=== PATIENT | female | born 1955 | race Caucasian/White ===

== ENCOUNTER → 2017-05-31 13:30 | Outpatient (CLI) | payer BC, SELFPAY ==
--- NOTE | 2017-05-31 13:45 | US_ITS ---
US extremity LT limited COMPARISON: HISTORY: Palpable fullness left lower back TECHNIQUE: Targeted ultrasound over the area of interest FINDINGS: There is a oval lesion just deep to the subcutaneous tissues left lower back measuring 2.3 x 2.5 cm and this shows homogeneous echogenicity. It is basically isoechoic to the echogenicity of the surrounding musculature. There is no abnormal fluid collection seen. IMPRESSION: Focal oval homogeneous mass likely representing a lipoma. It has no suspicious characteristics.
--- NOTE | 2017-05-31 13:45 | US_ITS ---
US soft tissue head and neck COMPARISON: None HISTORY: Palpable lesion left posterior neck TECHNIQUE: Targeted ultrasound over the area of interest FINDINGS: There is an oval solid mass at the site of the palpable abnormality patient's 3.42 cm in length x 3.1 cm in width. It has somewhat heterogenic echogenicity but basically isoechoic to the surrounding musculature. IMPRESSION: Possible lipoma. However since the echogenicity is somewhat heterogenic more so than most typical lipoma lipoma is present with suggest consideration of a CT scan of the neck for better evaluation.
--- NOTE | 2017-05-31 13:46 | XR_ITS ---
XR chest 2V HISTORY: ITS.REASON: CHEST WALL PAIN ORDERING PHYSICIAN: Parris Craig PATIENT AGE: 61 years COMPARISON: 10/17/2006 FINDINGS: There is mild cardiomegaly without failure. There is increased density in the right lower lobe consistent with atelectasis and/or pneumonia. Right hemidiaphragm is slightly elevated. There is evidence of old granulomatous disease. No acute bony anomalies. IMPRESSION: Right lower lobe infiltrate with mild cardiomegaly
== END ==
PROVIDERS: Family Provider Family Medicine; PCP Family Medicine; Visit Provider Nurse Practitioner Family
DX: R22.1 Localized swelling, mass and lump, neck (principal); R07.89 Other chest pain; M54.5 Low back pain
CPT/HCPCS: 71046; 76536; 76882

== ENCOUNTER → 2017-06-20 12:39 | Outpatient (CLI) | payer BC, SELFPAY ==
--- NOTE | 2017-06-20 12:55 | XR_ITS ---
XR chest 2V HISTORY: Follow-up pneumonia, chest wall pain ITS.REASON: FU ABNORMAL CHEST XRAY ORDERING PHYSICIAN: Jelani Rivas MD PATIENT AGE: 61 years COMPARISON: 05/31/2017 FINDINGS: There is improved inspiration with improvement in right lower lobe pneumonia. Unremarkable cardiovascular structures. Calcified node is present in the left hilum. IMPRESSION: No acute finding, improved right lower lobe pneumonia
[2017-06-20 13:01] LABS: Blood Urea Nitrogen 13 mg/dL (7-18); Creatinine,Serum 0.75 mg/dL (0.55-1.02); Estimated Glomerular Filt Rate 79 ml/min (>60); GFR (African American) 95 ML/MIN (>60)
--- NOTE | 2017-06-20 13:38 | CT_ITS ---
CT soft tissue neck w con CLINICAL INDICATION: Soft tissue mass of the left posterior neck. Abnormal ultrasound joint heterogeneous echogenic lesion ITS.REASON: LIPOMA ORDERING PHYSICIAN: Jelani Rivas MD PATIENT AGE: 61 years COMPARISON: 05/31/2017 TECHNIQUE:Axial, sagittal, and coronal images are generated and reviewed without contrast. A BB is placed along the posterior neck on the left at the region of the palpable abnormality. All CT scans at the facility use one or more dose reduction, viz: automated exposure control; ma/kV adjustment per patient size (including targeted exams where dose is matched to indication; i.e. head); or iterative reconstruction technique. FINDINGS: There is a 4.5 x 2 x 2.7 cm fatty lesion within the posterior aspect of the left neck just deep to the superior aspect of the trapezius. This is consistent with a lipoma. There is only slight increased density within the central aspect of the fat which may be related to some underlying vessels. There is extensive artifact from patient's dental work. No neck adenopathy. There is a 7 mm isodense nodule of the right lobe of the thyroid gland. Atheromatous changes are present involving the carotid arteries. There are slight reversal of the cervical lordosis with degenerative changes in the cervical spine. Postsurgical changes are present involving the right maxillary sinus with opacification of the right maxillary sinus. IMPRESSION: Left posterior neck mass represents a lipoma. Other nonacute findings as described above.
== END ==
PROVIDERS: Family Provider Family Medicine; PCP Family Medicine; Visit Provider Family Medicine
DX: D17.9 Benign lipomatous neoplasm, unspecified (principal); R93.8 Abnormal findings on diagnostic imaging of other specified body structures
CPT/HCPCS: 36415; 70491; 71046; 82565; 84520; Q9967

== ENCOUNTER → 2017-11-02 09:56 | Outpatient (CLI) | payer BC, SELFPAY ==
--- NOTE | 2017-11-02 09:59 | CT_ITS ---
CT abdomen pelvis w con CLINICAL INDICATION: Hematuria, history of kidney stones ITS.REASON: gross hematuria ORDERING PHYSICIAN: Curt Brewster MD PATIENT AGE: 61 years COMPARISON: 03/02/2016 TECHNIQUE: Axial images obtained with sagittal and coronal reformats. All CT scans at the facility use one or more dose reduction, viz: automated exposure control, ma/kV adjustment per patient size (including targeted exams where dose is matched to indication, i.e. head), or iterative reconstruction technique. Pre and post enhanced images are obtained PROCEDURE: Oral Contrast: None IV Contrast: 75 mL's of Isovue-370. FINDINGS: Previously described left lower lobe nodule measuring approximate 5 mm once again noted and unchanged. The liver, spleen, adrenal glands, and pancreas have an unremarkable appearance Cholelithiasis noted.. No ductal dilatation. There is a 5 mm stone in the lower pole the right kidney. No other renal calculi are evident. No hydronephrosis. No ureteral calculi. No renal mass. There are postsurgical changes of the intra-abdominal wall with surgical mesh in place. There is a small area of discontinuity of the mesh at the level of the umbilicus. No recurrent hernia evident. Postsurgical changes of the right colon. No evidence of diverticulitis. No intestinal obstruction or free air. There is diverticulosis of the descending and sigmoid colon. There has been prior hysterectomy. No pelvic mass abnormal fluid collection or focal inflammatory change evident of the pelvis. Unremarkable urinary bladder. There is mild lumbar scoliosis convex right with degenerative disc disease at L1-L2 and L2-L3 and in the lower thoracic spine. IMPRESSION: 1. Right nephrolithiasis. 2. No ureteral calculi. No renal mass or hydronephrosis. 3. Sigmoid diverticulosis
[2017-11-02 10:34] LABS: Anion Gap 11.9 mEq/L (5-15); Blood Urea Nitrogen 12 mg/dL (7-18); Calcium 9.3 mg/dL (8.5-10.1); Carbon Dioxide 29 mmol/L (21.0-32.0); Chloride 107 mmol/L (98-107); Creatinine,Serum 0.76 mg/dL (0.55-1.02); Estimated Glomerular Filt Rate 77 ml/min (>60); GFR (African American) 94 ML/MIN (>60); Glucose 126 mg/dL (74-106); Potassium 3.9 mmoL/L (3.5-5.1); Sodium 144 mmol/L (136-145)
--- NOTE | 2017-11-02 11:04 | HMH.ITSHM ---
FENOFIBRATE 145 MG METFORMIN 850 MG X2 LOSARTAN 100 MG ROSUVASTATIN 40 MG ASPIRIN 81 MG STERALINE
== END ==
PROVIDERS: Family Provider Family Medicine; PCP Family Medicine; Visit Provider Urology
DX: R31.0 Gross hematuria (principal); Z80.51 Family history of malignant neoplasm of kidney; N20.9 Urinary calculus, unspecified
CPT/HCPCS: 36415; 74177; 80048; Q9967

== ENCOUNTER → 2018-01-04 09:25 | Outpatient (CLI) | payer BC, SELFPAY ==
--- NOTE | 2018-01-04 09:28 | MM_ITS ---
MM Dig screening mamm BI w/CAD ORDERING PHYSICIAN : Jelani Rivas MD PATIENT AGE: 62 years GENDER: Female COMPARISON: December 14, 2016, 07/16/2015. INDICATION: ITS.REASON: SCREENING 62-year-old. No hormones. No new complaints. Family history. Maternal aunt with breast cancer in her 60s postmenopausal. TECHNIQUE: Standard CC and MLO images were obtained. R2 CAD reviewed. Additional medial cc view/cleavage view also performed FINDINGS: Lower density breast bilaterally with generalized fatty replacement. No dominant mass nor suspicious calcifications in either breast. No architectural distortion. No significant change since prior studies. Bilateral follow-up in one year the adequate. IMPRESSION Stable bilateral mammogram. No new areas of concern. Bilateral follow-up one year recommended.. BI-RADS Category: 1 Negative RECOMMENDED FOLLOW-UP: 1YR 1 YEAR FOLLOW-UP (A letter has been sent to the patient regarding results of the study.)
== END ==
PROVIDERS: PCP Family Medicine; Visit Provider Family Medicine
DX: Z12.31 Encounter for screening mammogram for malignant neoplasm of breast (principal)
CPT/HCPCS: 77067

== ENCOUNTER → 2018-06-12 11:16 | Outpatient (CLI) | payer BC, SELFPAY ==
--- NOTE | 2018-06-12 11:23 | XR_ITS ---
EXAM: XR cervical spine 5V HISTORY: ITS.REASON: NECK PAIN ORDERING PHYSICIAN: Parris Craig PATIENT AGE: 62 years COMPARISON: None FINDINGS: There is slight reversal of cervical lordosis. There is minimal anterolisthesis of C4 on C5 of 3 mm. Multilevel degenerative disc disease is present from C2 to C7 more extensive at C6-C7. There is mild uncovertebral hypertrophy with foraminal narrowing on the right at C3-C4 and C6-C7 and on the left at C6-C7. Facet arthritic changes are noted at C4-C7. No fracture or dislocation. No lytic or blastic change. IMPRESSION: Cervical spondylosis with degenerative disc disease and facet arthritic change with foraminal narrowing as described above and reversal of the cervical lordosis
--- NOTE | 2018-06-12 11:23 | XR_ITS ---
EXAM: XR thoracic spine 3V HISTORY: ITS.REASON: BACK PAIN Comparison: None FINDINGS: There is degenerative disc disease in the midthoracic spine. No acute fracture or dislocation. Degenerative disc disease is also present at L1-L2. No lytic or blastic change. IMPRESSION: Thoracic spondylosis with degenerative disc disease, no acute finding
== END ==
PROVIDERS: PCP Family Medicine; Visit Provider Nurse Practitioner Family
DX: M54.2 Cervicalgia (principal); M54.6 Pain in thoracic spine
CPT/HCPCS: 72050; 72072

== ENCOUNTER → 2019-01-24 10:31 | Outpatient (CLI) | payer OTHER, SELFPAY ==
--- NOTE | 2019-01-24 10:43 | MM_ITS ---
PROCEDURE: MM DIG SCREENING MAMM BI W/CAD CLINICAL INDICATION: SCREENING There is a history of breast cancer in the patient's maternal aunts both diagnosed after menopause COMPARISON: [facility] DIG MAMM-SCREEN HARDY from 07/16/2015 [facility] DIG MAMM-SCREEN [facility] W/CAD from 12/14/2016 [facility] MM Dig screening mamm BI w/CAD from 01/04/2018 TECHNIQUE: Standard CC and MLO images were obtained. R2 CAD reviewed. FINDINGS: Scattered fibroglandular densities are seen throughout both breasts and the findings of bilateral and symmetrical. There is a mole marker on each breast. A couple benign-appearing microcalcifications right breast. There are several normal appearing nodes in both axilla. IMPRESSION: Fibrofatty parenchyma with no suspicious lesions seen BI-RAD Category: 2 Benign Finding(s) FOLLOW-UP: 1YR 1 Year Follow-up (A letter has been sent to the patient regarding results of the study.) Dictated by: Dr. Brody Grant MD 01/24/2019 11:[address] Brody Grant MD in [place] 01/24/2019 11:26
== END ==
PROVIDERS: PCP Family Medicine; Visit Provider Family Medicine
DX: Z12.31 Encounter for screening mammogram for malignant neoplasm of breast (principal)
CPT/HCPCS: 77067

== ENCOUNTER → 2019-10-14 08:53 | Outpatient (CLI) | payer OTHER, SELFPAY ==
--- NOTE | 2019-10-14 08:59 | US_ITS ---
PROCEDURE: US ABDOMEN LIMITED CLINICAL INDICATION: ABD PAIN, ACUTE, RUQ COMPARISON: No exams were available for comparison FINDINGS: PANCREAS: Unremarkable. No obvious mass or abnormal fluid collection. No ductal dilatation LIVER: No focal liver lesions demonstrated. Homogeneous echogenicity. No intrahepatic biliary ductal dilatation evident. There is appropriate direction of blood flow within a non dilated portal vein RIGHT KIDNEY: Unremarkable. Right kidney measures 11.6 x 5.9 by 5.6 cm and appears sonographically normal. . No hydronephrosis GALLBLADDER: The gallbladder is normal in size. There is a partially calcified gallstone in addition to a least 2-3 small nonshadowing gallbladder polyps. The gallbladder wall is normal in thickness. The common bile duct measures 3 mm. IMPRESSION: Cholelithiasis along with gallbladder polyps as noted Dictated by: Dr. Brody Grant MD 10/14/2019 10:24 Dr. Brody Grant MD in [place] 10/14/2019 10:24
[2019-10-14 09:42] LABS: Basophils % 0.4 % (0.1-2.0); Eosinophils # 0.1 K/mm3 (0.0-0.4); Eosinophils % 1.7 % (0.1-12.0); Hemoglobin 13.8 g/dL (12.2-16.2); Lymphocytes % 18.4 % (10-50); Mean Corpuscular HGB Conc 33.7 g/dL (31.8-35.4); Mean Corpuscular Volume 89.2 fl (81-99); Mean Platelet Volume 7.7 fl (7.4-10.4); Monocytes # 0.3 K/mm3 (0.1-1.0); Monocytes % 6.1 % (1.7-9.3); Neutrophils # 4.1 K/mm3 (1.8-7.8); Neutrophils % 73.5 % (37.0-80.0); Platelet Count 274 K/mm3 (142-424); Red Cell Distribution Width 13.3 % (11.5-17.5); White Blood Count 5.6 K/mm3 (4.8-10.8)
[2019-10-14 10:03] LABS: Chloride 103 mmol/L (98-107); Potassium 3.6 mmoL/L (3.5-5.1); Sodium 141 mmol/L (136-145)
[2019-10-14 10:06] LABS: Alanine Aminotransferase 64 U/L (12-78); Albumin Level 4.3 g/dl (3.5-5.0); Albumin/Globulin Ratio 1.3 (1.1-1.8); Alkaline Phosphatase 158 U/L (38-126); Amylase 42 U/L (30-110); Anion Gap 12.6 mEq/L (5-15); Aspartate Amino Transferase 73 U/L (14-36); Bilirubin,Total 0.7 mg/dl (0.2-1.3); Blood Urea Nitrogen 17 mg/dl (7-17); Calcium 9.9 mg/dl (8.4-10.2); Carbon Dioxide 29 mmol/L (22.0-30.0); Estimated Glomerular Filt Rate 63 ml/min (>60); GFR (African American) 77 ML/MIN (>60); Globulin 3.2 g/dL (1.3-3.2); Glucose 161 mg/dl (74-100); Lipase 64 U/L (23-300); Total Protein,Serum 7.5 g/dl (6.3-8.2)
== END ==
PROVIDERS: PCP Family Medicine; Visit Provider Nurse Practitioner Family
DX: R10.10 Upper abdominal pain, unspecified (principal)
CPT/HCPCS: 36415; 76705; 80053; 82150; 83690; 85025

== ENCOUNTER → 2019-11-03 10:06 | Outpatient (CLI) | payer OTHER, SELFPAY ==
[2019-11-03 10:24] LABS: Basophils # 0.1 K/mm3 (0-0.2); Eosinophils # 0.2 K/mm3 (0.0-0.4); Eosinophils % 3.4 % (0.1-12.0); Hematocrit 36.7 % (37.0-47.0); Hemoglobin 12.7 g/dL (12.2-16.2); Lymphocytes # 2.1 K/mm3 (0.7-4.5); Lymphocytes % 44.9 % (10-50); Mean Corpuscular HGB Conc 34.7 g/dL (31.8-35.4); Mean Corpuscular Hemoglobin 29.7 pg (27.0-31.2); Mean Corpuscular Volume 85.4 fl (81-99); Mean Platelet Volume 7.3 fl (7.4-10.4); Monocytes # 0.2 K/mm3 (0.1-1.0); Monocytes % 5.2 % (1.7-9.3); Neutrophils # 2.1 K/mm3 (1.8-7.8); Neutrophils % 45.6 % (37.0-80.0); Platelet Count 330 K/mm3 (142-424); Red Blood Count 4.29 M/mm3 (4.20-5.40); Red Cell Distribution Width 13.5 % (11.5-17.5); White Blood Count 4.6 K/mm3 (4.8-10.8)
[2019-11-03 10:55] LABS: Chloride 104 mmol/L (98-107); Potassium 3.9 mmoL/L (3.5-5.1); Sodium 140 mmol/L (136-145)
[2019-11-03 10:57] LABS: Amylase 53 U/L (30-110); Blood Urea Nitrogen 20 mg/dl (7-17); Estimated Glomerular Filt Rate 85 ml/min (>60); GFR (African American) 102 ML/MIN (>60)
[2019-11-03 10:58] LABS: Alanine Aminotransferase 27 U/L (12-78); Albumin Level 4.2 g/dl (3.5-5.0); Albumin/Globulin Ratio 1.5 (1.1-1.8); Alkaline Phosphatase 63 U/L (38-126); Anion Gap 10.9 mEq/L (5-15); Aspartate Amino Transferase 27 U/L (14-36); Bilirubin,Total 0.5 mg/dl (0.2-1.3); Calcium 10.2 mg/dl (8.4-10.2); Carbon Dioxide 29 mmol/L (22.0-30.0); Globulin 2.8 g/dL (1.3-3.2); Glucose 298 mg/dl (74-100); Lipase 260 U/L (23-300)
[2019-11-03 12:13] LABS: Coronavirus 19 IgG Antibody Negative (Negative); Coronavirus 19 IgM Antibody Negative (Negative)
== END ==
PROVIDERS: PCP Family Medicine; Visit Provider Surgery
DX: Z01.818 Encounter for other preprocedural examination (principal); K80.20 Calculus of gallbladder without cholecystitis without obstruction
CPT/HCPCS: 36415; 80053; 82150; 83690; 85025; 86328

== ENCOUNTER 2019-11-05 07:02 | Day surgery (SDC) | payer OTHER, SELFPAY ==
[2019-10-30 10:40] VITALS: BMI 31.4
[2019-11-05] VITALS (12 sets, daily range): BP systolic 112–187; BP diastolic 54–78; PULSE 65–74; RESP 16–18; TEMP 36.4–43; O2SAT 93–99
[2019-11-05 07:28] LABS: POC Glucose,Bedside 177 (70-110)
--- NOTE | 2019-11-05 07:33 | P.PN_ITS ---
[facility] Anesthesia Checklist - Patient Identification Patient Identification: Arm Band, Verbal (Name & ) - Structural Data Admitted From: Home Planned Operative Procedure/s: lap choly Consent for Planned Operative Procedure(s) Verified: Yes Verified Documents: History and Physical - NPO Status Verified Time NPO: 00:00 - Chart Verification Results Verified: CBC, BMP - Additional verifications Patient : No Anesthesia Reactions: No Hx Blood Transfusions: No Blood Transfusion Reaction: No Cephalosporin Allergy: No Previous Colonoscopy: Yes - Cardiovascular Assessment Heart Sounds: S1 & S2 Pulse Strength: Baseline Pulse Rhythm: Regular Peripheral Edema: No - Airway Assessment C-Spine Mobility Assessed: Yes TMJ Mobility Assessed: Yes Dentition: Good Dentition - Neurological Assessment Level of Consciousness: Awake, Alert, Appropriate Hx Seizures: No Numbness or tingling in extremities: No - Anesthesia Plan Anesthesia Risk discussed: Yes Anesthesia Plan: Verified ASA Class: III Anesthesia Type: General [facility] History I have reviewed the patient's past medical history: Yes Medical History: Reports:: Anxiety, Diabetes Mellitus Type 2, Hyperlipidemia, Hypertension Denies:: Cancer, Diabetes Mellitus Type 1, Internal Pacemaker, MRSA, Seizures *Have you ever received a pneumonia vaccine?: Yes *Have you received a flu vaccine this season?: Yes Other Medical History: Reports: Other. Denies: Blood Transfusion Reaction Anesthesia experience/problems:: none Laterality Cases: Right: Arthroscopy Knee, Bilateral: Tonsillectomy Other Surgeries: Yes: Colon Resection, Hernia Repair, Hysterectomy-Total, Tubal Ligation, Other. No: Pacemaker Amputation: No Fractures: No - *Social History Last grade of school completed: Some college Smoking Status: Never smoker Alcohol Intake: current Alcohol Intake Frequency:: a few times a week Substance Use Type: denies use *Occupational Status:: retired Housing: house Household Members: spouse *Travel in the last 8 weeks: None - Psychiatric History Pschychiatric History:: Reports:: Anxiety Family Hx:: Cancer, Coronary Artery Disease, Diabetes, Heart Attack, Hyperlipidemia, Hypertension
--- NOTE | 2019-11-05 10:40 | HMH.OPNOTE ---
Date of procedure: 11/05/19 Pre-op Diagnosis:: Symptomatic gallstones Post-op Diagnosis:: Same Procedure performed:: Laparoscopic cholecystectomy Surgeon:: Andrey Tavarez MD LONG DISTANCE OPERATOR:: Castro Drummond Anesthesia: GETFelicia Estimated blood loss (mL): 20 Clinical Note:: Patient is a 63-year-old female referred by [facility] for gallbladder. She states that she has had some symptoms characterized mainly as bloating, pain in the right upper quadrant, nausea and occasional vomiting for about a year. However, this is become progressively worse. She has associated this with alcohol intake and states that whenever she drinks even if it is only a single beer she has symptoms. This usually occurs a couple hours after intake. She has had some occasional waves of nausea. A bit over a week ago she had significant attack . She then underwent ultrasound which reveals calcified gallstones with several gallbladder polyps . Of note, the patient has undergone laparotomy with colon resection for large benign polyp years ago and has had several laparoscopic hernia repairs subsequently at [facility], [place]. Operative findings:: She had a distended somewhat thickened gallbladder. There were extensive intra-abdominal adhesions with a large prosthetic mesh covering the majority of her upper abdomen. She did have some enteric adhesions in the right upper quadrant. Operative note:: Patient was taken to the operating room. She was given preoperative intravenous antibiotics. In the operating room she was placed in a supine position. General anesthesia was induced via endotracheal tube. Abdomen was prepped and draped in the standard surgical fashion. Due to her prior surgical history through a 5 mm left subcostal incision optical trocar was inserted with 5 mm laparoscope. CO2 pneumoperitoneum was achieved to 15 mmHg. Laparoscopic surveillance was then carried out and there were omental adhesions encountered. There was a clean window free of adhesions in the left lateral abdomen and an additional 5 mm trocar was inserted at this location. Extensive adhesion lysis was performed using laparoscopic Metzenbaum dissection along with some blunt dissection and use of ANNALISA ultrasonic harmonic vee. Omental adhesions were taken down from the anterior abdominal wall where there was a large prosthetic mesh. There were noted to be some enteric adhesions likely her prior bowel anastomosis in the right upper quadrant. This was carefully taken down using sharp laparoscopic Metzenbaum dissection. Please note that laparoscopic adhesion lysis was approximately 1 hour. Patient was then positioned in reverse Trendelenburg left side down. A couple of 5 mm trochars were inserted in the right upper abdomen. 10 mm trocar was inserted in the epigastrium. Mesh appeared to be extending down to her umbilical area. Inferior to this in the lower abdomen and pelvis there were still extensive omental adhesions. Therefore through her umbilical area incision was made and 11 mm trocar was inserted. Gallbladder was identified and grasped retracted anteriorly over the dome of the liver. Adhesions to the gallbladder were taken down using blunt dissection. Dissection was carried down to the neck of the gallbladder. Infundibulum/Colin's pouch was retracted anterior laterally. Visceral peritoneum over the neck of the gallbladder was bluntly incised. There was some fatty infiltration around the neck of the gallbladder and shreya hepatis. Ultimately dissection was performed isolating the cystic duct. There was some unavoidable spillage of bile from the gallbladder body during the dissection process and this was suctioned free. Cystic duct, once isolated, was multiply clipped and sharply divided. Cystic artery was carefully coagulated with ANNALISA ultrasonic robotic vee and divided. The gallbladder was dissected free from the liver in a retrograde fashion using ANNALISA ultrasonic harmonic shear
--- NOTE | 2019-11-05 10:46 | P.PN_ITS ---
[facility] Anesthesia Record Part I Intake, IV Amount: 1,500 Estimated blood loss (mL): 10 Urine output (mL): 0 Blood Pressure: 124/67 SaO2: 93 Pulse Rate: 71 Respiratory Rate: 16 Temperature: 99.2 F Patient is:: Drowsy, Stable Stable to PACU at:: 10:40
[2019-11-05 10:56] LABS: POC Glucose,Bedside 218 (70-110)
--- NOTE | 2019-11-05 11:33 | PC.NURSE ---
see emar for digital media buyer
--- NOTE | 2019-11-05 12:21 | HMH.ANESII ---
[facility] Anesthesia Record Part II Discharge Time: 11:10 Destination: Surgical Day Care (OP Surgery) PACU nurse assessment reviewed?: Yes Patient Condition:: Good Anesthesia Complications:: None Swallowing reflex intact?: Yes Cyanosis?: No Blood Pressure: 121/69 Pulse Rate: 67 Temperature: 99.2 F Mental Status: Alert & Oriented Pain level:: 0 Nausea and/or vomitting:: Nauseated Intake, IV Amount: 0
== END 2019-11-05 12:12 | disposition home or self-care (01) ==
LOC: OR 07:03
PROVIDERS: PCP Family Medicine; Visit Provider Surgery
PROC: 0FT44ZZ Resection of Gallbladder, Percutaneous Endoscopic Approach (ICD-10-PCS; CPT 47562; principal; 2019-11-05 08:45)
DX: K80.20 Calculus of gallbladder without cholecystitis without obstruction (principal); K66.0 Peritoneal adhesions (postprocedural) (postinfection); Z90.49 Acquired absence of other specified parts of digestive tract; E11.9 Type 2 diabetes mellitus without complications; I10 Essential (primary) hypertension; E78.5 Hyperlipidemia, unspecified; F41.9 Anxiety disorder, unspecified; Z90.89 Acquired absence of other organs; Z87.39 Personal history of other diseases of the musculoskeletal system and connective tissue; Z90.710 Acquired absence of both cervix and uterus; Z72.89 Other problems related to lifestyle; Z80.9 Family history of malignant neoplasm, unspecified
CPT/HCPCS: 47562; 82962; 96374; J2405; J2710

== ENCOUNTER → 2020-01-10 07:48 | Outpatient (CLI) | payer OTHER, SELFPAY ==
[2020-01-10 10:33] LABS: Coronavirus 19 IgG Antibody Negative (Negative); Coronavirus 19 IgM Antibody Negative (Negative)
== END ==
PROVIDERS: Visit Provider Internal Medicine Gastroenterology
DX: Z01.818 Encounter for other preprocedural examination (principal); Z12.11 Encounter for screening for malignant neoplasm of colon
CPT/HCPCS: 36415; 86328

== ENCOUNTER 2020-01-12 07:02 | Day surgery (SDC) | payer OTHER, SELFPAY ==
[2020-01-06 13:52] VITALS: BMI 30.7
[2020-01-12 07:13] VITALS: BP 175/89; PULSE 66; RESP 18; TEMP 36.7; O2SAT 96
[2020-01-12 07:28] LABS: POC Glucose,Bedside 173 (70-110)
--- NOTE | 2020-01-12 08:00 | HMH.ANESCL ---
[facility] Anesthesia Checklist - Patient Identification Patient Identification: Arm Band, Verbal (Name & ) - Structural Data Admitted From: Home Planned Operative Procedure/s: Colonoscopy Consent for Planned Operative Procedure(s) Verified: Yes Verified Documents: Surgical Consent, History and Physical - NPO Status Verified Time NPO: 00:00 - Chart Verification Results Verified: None - Additional verifications Fingerstick Blood Glucose: 173 Anesthesia Reactions: No Hx Blood Transfusions: No Blood Transfusion Reaction: No - Airway Assessment C-Spine Mobility Assessed: Yes TMJ Mobility Assessed: Yes Dentition: Good Dentition - Neurological Assessment Level of Consciousness: Awake, Alert, Appropriate, Follows Commands Hx Seizures: No Numbness or tingling in extremities: Yes - Anesthesia Plan Anesthesia Risk discussed: Yes Anesthesia Plan: Verified ASA Class: III Anesthesia Type: MAC [facility] History I have reviewed the patient's past medical history: Yes Medical History: Reports:: Anxiety, Diabetes Mellitus Type 2, Hyperlipidemia, Hypertension Denies:: Cancer, Diabetes Mellitus Type 1, Internal Pacemaker, MRSA, Seizures *Have you ever received a pneumonia vaccine?: Yes *Have you received a flu vaccine this season?: Yes Other Medical History: Reports: Other. Denies: Blood Transfusion Reaction Anesthesia experience/problems:: None Laterality Cases: Right: Arthroscopy Knee, Bilateral: Lumpectomy, Tonsillectomy Other Surgeries: Yes: Colonoscopy, Colon Resection, Hernia Repair, Hysterectomy-Total, Tubal Ligation, Other. No: Pacemaker Amputation: No Fractures: No - *Social History Smoking Status: Never smoker Alcohol Intake: current Alcohol Intake Frequency:: a few times a week Substance Use Type: denies use *Occupational Status:: retired Housing: house Household Members: spouse *Travel in the last 8 weeks: None - Psychiatric History Pschychiatric History:: Reports:: Anxiety Family Hx:: Cancer, Coronary Artery Disease, Diabetes, Heart Attack, Hyperlipidemia, Hypertension
--- NOTE | 2020-01-12 08:02 | P.PCN_ITS ---
[facility] Procedure Note Procedure Note:: Colonoscopy Procedure Report: Colonoscopy with cold snare polypectomy Endoscopist: Pierre Cowart II, MD Referring physician: UNA Porter Date of Procedure: January 12, 2020 Equipment: Olympus 180 variable stiffness pediatric colonoscope Sedation: MAC sedation Indication: Mrs. Vilchis is a 64-year-old female who is here for follow- up screening/surveillance colonoscopy secondary to a personal history of colon polyps. She does have a history of advanced adenomatous polyps and did have colon resection 10 years ago because of the large advanced sessile adenomatous polyp (Dr. Newton Burdick). Her last colonoscopy was 3 to 4 years ago (Dr. Terry Lora). She reports no abdominal pain, weight loss, change in her bowel habits or rectal bleeding. She reports no family history of colon cancer. Procedure: Prior to the procedure, a history and physical exam was performed, and patient's medications and allergies were reviewed. The risks, benefits and alternatives of the sedation and procedure were discussed with the patient. All questions were answered and informed consent was obtained. The patient was brought to the procedure room. Patient identification and proposed procedure were verified by the physician and the nurse. The patient was placed in a left lateral decubitus position and the scope was passed under direct vision. Throughout the procedure, the patient's blood pressure, pulse, and oxygen saturations were monitored continuously. The colonoscopy was accomplished without difficulty. The patient tolerated the procedure well. Findings: On digital rectal examination there was normal rectal tone. There were no external hemorrhoids. The colonoscope was introduced through the anal canal to the rectum and advanced to the ileocolonic anastomosis. The scope was advanced a short distance into the ileum which was normal. The scope was then withdrawn into the colon. There was evidence of prior right hemicolectomy. There were 2 polyps (transverse x1 (4 mm) and sigmoid x1 (3 mm)) that were both removed via cold snare polypectomy. There were scattered diverticuli throughout the descending and sigmoid colon (LEFT colon). The rectum itself was normal. Upon retroflexion within the rectum there were grade 1-2 internal hemorrhoids. The preparation was excellent throughout with [place] Preparation Score of 9. The cecal time was 10 minutes. Impression: 1. Diminutive colonic polyps x2 2. Left-sided diverticulosis 3. Prior right hemicolectomy with normal ileocolonic anastomosis 4. Grade 1-2 internal hemorrhoids Plan: I will follow up the polyp pathology and recommend repeat colonoscopy again in 5 years based upon the polyp histology and the patient's prior history of advanced adenomatous polyps. I would encourage fiber supplementation on a long-term daily maintenance basis.
[2020-01-12 08:06] VITALS: O2SAT 97
[2020-01-12 08:23] VITALS: BP 124/70; PULSE 82; RESP 12; TEMP 36.6; O2SAT 92
[2020-01-12 08:33] VITALS: BP 120/76; PULSE 63; RESP 16; O2SAT 97
[2020-01-12 08:43] VITALS: BP 153/82; PULSE 61; RESP 16; O2SAT 100
[2020-01-12 08:53] VITALS: BP 150/80; PULSE 56; RESP 16; TEMP 36.6; O2SAT 100
== END 2020-01-12 08:56 | disposition home or self-care (01) ==
LOC: OUTP 07:03
PROVIDERS: PCP Family Medicine; Visit Provider Internal Medicine Gastroenterology
PROC: 0DJD8ZZ Inspection of Lower Intestinal Tract, Via Natural or Artificial Opening Endoscopic (ICD-10-PCS; CPT 45378; principal; 2020-01-12 08:00)
DX: Z12.11 Encounter for screening for malignant neoplasm of colon (principal); Z86.010 Personal history of colon polyps; K63.5 Polyp of colon; K57.30 Diverticulosis of large intestine without perforation or abscess without bleeding; K64.0 First degree hemorrhoids; Z90.49 Acquired absence of other specified parts of digestive tract; Z87.19 Personal history of other diseases of the digestive system
CPT/HCPCS: 45385; 82962

== ENCOUNTER → 2020-02-19 08:48 | Outpatient (CLI) | payer OTHER, SELFPAY ==
--- NOTE | 2020-02-19 08:50 | MM_ITS ---
PROCEDURE: MM DIG SCREENING MAMM BI W/CAD Digital Breast Tomosynthesis Included CLINICAL INDICATION: SCREENING There is a history of breast cancer patient's maternal aunt. COMPARISON: [facility] DIG MAMM-SCREEN HARDY W/CAD from 12/14/2016 [facility] MM Dig screening mamm BI w/CAD from 01/04/2018 MG MM DIG SCREENING MAMM BI W/CAD from 01/24/2019 TECHNIQUE: Standard CC and MLO images and 3D Tomosynthesis was obtained. R2 CAD reviewed. FINDINGS: Scattered mild diffuse fibroglandular densities are seen throughout breasts. There are mole markers on each breast. There are no CAD markings. There are few scattered benign-appearing microcalcifications right breast. There are multiple small nodes in both axilla. There is no suspicious lesion and no suspicious microcalcifications. IMPRESSION: Fibrofatty parenchyma with no suspicious lesions seen BI-RAD Category: 2 Benign Finding(s) FOLLOW-UP: 1YR 1 Year Follow-up (A letter has been sent to the patient regarding results of the study.) Dictated by: Dr. Brody Grant MD 02/23/2020 08:26 Dr. Brody Grant MD in [place] 02/23/2020 08:26
== END ==
PROVIDERS: PCP Family Medicine; Visit Provider Nurse Practitioner Family
DX: Z12.31 Encounter for screening mammogram for malignant neoplasm of breast (principal)
CPT/HCPCS: 77063; 77067

== ENCOUNTER → 2020-03-19 09:35 | Outpatient (CLI) | payer OTHER, SELFPAY ==
--- NOTE | 2020-03-19 09:38 | XR_ITS ---
PROCEDURE: XR DEXA AXIAL SKELETON CLINICAL HISTORY: OSTEOPOROSIS COMPARISON: No exams were available for comparison FINDINGS: The right hip BMD is 0.759 with a T-score of -0.8. The left hip BMD is 0.728 with a T-score of -1.1. The lumbar spine BMD is 1.203 with a T-score of 1.4. IMPRESSION: This patient is considered osteopenic according to the World Health Organization criteria. Bone density is between 10 and 25 percent below young normal. Fracture risk is moderate. Treatment is advised. Based on these results a follow-up exam is recommended in 2 year. Dictated by: Axel Turk MD 03/19/2020 19:34 Axel Turk MD in [place] 03/22/2020 15:52
== END ==
PROVIDERS: PCP Family Medicine; Visit Provider Nurse Practitioner Family
DX: Z13.820 Encounter for screening for osteoporosis (principal); Z78.0 Asymptomatic menopausal state
CPT/HCPCS: 77080

== ENCOUNTER → 2020-05-26 13:43 | Outpatient (POV) | payer OTHER, SELFPAY | DX: Z00.00 Encounter for general adult medical examination without abnormal findings (principal) ==

== ENCOUNTER → 2021-03-25 07:51 | Outpatient (CLI) | payer MEDICARE, SELFPAY ==
--- NOTE | 2021-03-25 08:14 | MM_ITS ---
PROCEDURE INFORMATION: Exam: MG Bilateral Screening 3D Mammography Exam date and time: 03/25/2021 8:14 AM Age: 65 years old Clinical indication: Encounter for screening mammogram for malignant neoplasm of breast TECHNIQUE: Imaging protocol: Bilateral Screening tomosynthesis and 2D mammography including computer-aided detection (CAD) when performed. COMPARISON: 1. MG MM DIG SCREENING MAMM BI W/CAD 02/19/2020 9:04 AM 2. MG MM DIG SCREENING MAMM BI W/CAD 01/24/2019 11:04 AM FINDINGS: MAMMOGRAPHY: Breast composition: The breasts are almost entirely fatty. Mass: None. Architectural distortion: None. Calcifications: No suspicious calcifications. Asymmetric density: None. Skin thickening: None. Axillary adenopathy: None. IMPRESSION: No mammographic evidence of malignancy. Annual screening is recommended unless otherwise clinically indicated. ASSESSMENT: BI-RADS Category 1: Negative
== END ==
PROVIDERS: PCP Family Medicine; Visit Provider Nurse Practitioner Family
DX: Z12.31 Encounter for screening mammogram for malignant neoplasm of breast (principal)
CPT/HCPCS: 77063; 77067

== ENCOUNTER → 2021-06-28 11:02 | Outpatient (POV) | payer MEDICARE, SELFPAY | PROVIDERS: Visit Provider Dermatology | DX: Z00.00 Encounter for general adult medical examination without abnormal findings (principal) ==

== ENCOUNTER → 2021-10-12 09:12 | Outpatient (CLI) | payer MEDICARE, SELFPAY ==
--- NOTE | 2021-10-12 | CA_ITS ---
APPROVED REPORT EXAM: Comprehensive 2D, Doppler, and color-flow Echocardiogram [employer] Operator: Kika Bergeron RT(R) Ht: 5 ft 5 in Wt: 190lbs BSA: 1.94 BP: 139/78 mmHg Indications: murmur, ex smoker, marijuana usage, HTN, DM, hyperlipdemia, family history of HD. 2D Dimensions LVOT 1.98 cm (M/F) 1.5-2.5 LVEF (Rosas's) 56.10 % F: 54 - 74 LV Volume 122.10 mL F: 46 - 106 LV Volume Index 63.26 mL/m2 F: 29 - 61 LA Volume 47.50 mL LA Volume Index 24.61 mL/m2 (M/F) 16-34 M-Mode Dimensions RVDd 2.96 cm (0.9-2.6) LA Diam 3.93 cm (1.9-4.0) LVDd 5.35 cm (3.5-5.7) Ao Diam 2.78 cm (2.0-3.7) LVDs 3.98 cm (3.5-5.7) IVSd 0.95 cm (0.6-1.1) PWd 1.14 cm (0.6-1.1) EF (Teich) 50.00% FS 25.60% EDV (Teich) 138.30 mL ESV (Teich) 69.20 mL LV Diastology E Decel Time 200.00 (160-240 msec) E/A Ratio 1.1 MED E' 10.80 (< 7 cm/sec) E'/MED E' Ratio 9.35 (>14) LAT E' 7.90 (<10 cm/sec) E/LAT E' Ratio 12.78 (>14) Mitral Valve MV E Max Moreno. 101.00 (40-130 cm/s) MV A Velocity 93.00 (40-130 cm/s) E/A Ratio 1.08 MV Decel. Time 200.00 (160-240 ms) MV PHT 59.00 ms Left Ventricle Left atrium is mildly enlarged, left ventricle is normal size mild concentric left ventricular hypertrophy, estimated ejection fraction 55% with no regional wall motion abnormality, grade 1 diastolic dysfunction seen without tissue Doppler evidence of raise left atrial pressure. Right Ventricle Right atrium and right ventricle are normal size and contractility. Aortic Valve Aortic valve is minimally thickened and fibrosed there is no aortic stenosis or aortic insufficiency. Mitral Valve Mitral valve grossly normal, there is trace mitral regurgitation. Tricuspid Valve Tricuspid grossly normal, there is trace tricuspid regurgitation, tricuspid regurgitation jet velocity is inadequate for calculation of the right ventricular systolic pressure. Pulmonic Valve Pulmonic valve is poorly visualized. Great Vessels Aortic root is normal size. Inferior vena cava normal size with normal inspiratory collapse. Pericardium No significant pericardial effusion noted. Conclusion 1. Mildly enlarged left atrium, normal left ventricular size, mild concentric left ventricular hypertrophy, estimated ejection fraction 55% with no regional wall motion abnormality, grade 1 diastolic dysfunction seen without tissue Doppler evidence of raise left atrial pressure. 2. Trace mitral and tricuspid regurgitation. 3. No significant pericardial effusion. 4. Inferior vena cava is normal size with normal inspiratory collapse. Electronically signed by : Av Yoo MD 10/13/2021 06:24:38
--- NOTE | 2021-10-12 10:03 | ECG_ITS ---
APPROVED REPORT Exam: Resting ECG HR:56 bpm ECG Measurements Heart Rate 56 AXES OK 167 P 32 QRSd 102 QRS 14 QT 429 T 16 QTc 419 Conclusion SINUS BRADYCARDIA BORDERLINE ECG UNCONFIRMED REPORT Electronically signed by : Papito Flores MD 10/12/2021 17:36:27
== END ==
PROVIDERS: PCP Family Medicine; Visit Provider Nurse Practitioner Family
DX: R01.1 Cardiac murmur, unspecified (principal); I10 Essential (primary) hypertension
CPT/HCPCS: 93005; 93306

== ENCOUNTER → 2021-10-27 08:26 | Outpatient (CLI) | payer MEDICARE, SELFPAY ==
[2021-11-03 16:12] LABS: Pancreatic Elastase, Fecal 468 (>200)
== END ==
PROVIDERS: PCP Family Medicine; Visit Provider Internal Medicine Gastroenterology
DX: R14.0 Abdominal distension (gaseous) (principal)
CPT/HCPCS: 82656

== ENCOUNTER → 2021-11-29 09:29 | Outpatient (POV) | payer MEDICARE, SELFPAY | PROVIDERS: Visit Provider Dermatology | DX: Z00.00 Encounter for general adult medical examination without abnormal findings (principal) ==

== ENCOUNTER → 2022-01-24 16:47 | Outpatient (CLI) | payer MEDICARE, SELFPAY ==
[2022-01-24 17:27] LABS: Basophils # 0.1 K/mm3 (0-0.2); Basophils % 1.5 % (0.1-2.0); Eosinophils # 0.1 K/mm3 (0.0-0.4); Eosinophils % 1.8 % (0.1-12.0); Hematocrit 39.7 % (37.0-47.0); Hemoglobin 12.8 g/dL (12.2-16.2); Lymphocytes # 0.6 K/mm3 (0.7-4.5); Lymphocytes % 12.7 % (10-50); Mean Corpuscular HGB Conc 32.2 g/dL (31.8-35.4); Mean Corpuscular Hemoglobin 28.8 pg (27.0-31.2); Mean Corpuscular Volume 89.3 fl (81-99); Mean Platelet Volume 7.7 fl (7.4-10.4); Monocytes # 0.4 K/mm3 (0.1-1.0); Monocytes % 9.3 % (1.7-9.3); Neutrophils # 3.3 K/mm3 (1.8-7.8); Neutrophils % 74.6 % (37.0-80.0); Platelet Count 306 K/mm3 (142-424); Red Blood Count 4.44 M/mm3 (4.20-5.40); Red Cell Distribution Width 13.7 % (11.5-17.5); White Blood Count 4.4 K/mm3 (4.8-10.8)
== END ==
PROVIDERS: PCP Nurse Practitioner Family; Visit Provider Nurse Practitioner Family
DX: R50.9 Fever, unspecified (principal)
CPT/HCPCS: 36415; 85025; 87275; 87276

== ENCOUNTER → 2022-02-28 08:55 | Outpatient (POV) | payer MEDICARE, SELFPAY | PROVIDERS: Visit Provider Dermatology | DX: Z00.00 Encounter for general adult medical examination without abnormal findings (principal) ==

== ENCOUNTER → 2022-04-07 08:15 | Outpatient (CLI) | payer MEDICARE, SELFPAY ==
--- NOTE | 2022-04-07 08:19 | MM_ITS ---
PROCEDURE INFORMATION: Exam: MG Bilateral Screening 3D Mammography Exam date and time: 04/07/2022 8:13 AM Age: 66 years old Clinical indication: Screening mammogram TECHNIQUE: Imaging protocol: Bilateral Screening tomosynthesis and 2D mammography including computer-aided detection (CAD) when performed. COMPARISON: 1. MG MM DIG SCREENING MAMM BI W/CAD 03/25/2021 8:10 AM 2. MG MM DIG SCREENING MAMM BI W/CAD 02/19/2020 9:04 AM 3. MG MM DIG SCREENING MAMM BI W/CAD 01/24/2019 11:04 AM 4. MG SCBI MM Dig screening mamm BI w/CAD 01/04/2018 9:37 AM FINDINGS: MAMMOGRAPHY: Breast composition: The breasts are almost entirely fatty. Mass: None. Architectural distortion: No new or suspicious architectural distortion. Calcifications: No new or suspicious calcifications are present Asymmetric density: No new or suspicious asymmetric density is present Skin thickening: None. Axillary adenopathy: None. IMPRESSION: No mammographic evidence of malignancy. Recommend annual screening mammography unless otherwise clinically indicated. ASSESSMENT: BI-RADS category 1: Negative
--- NOTE | 2022-04-07 08:19 | XR_ITS ---
FINAL REPORT TECHNIQUE: Bone densitometry calculations of the lumbar spine and hip were obtained. CLINICAL HISTORY: . post menopausal COMPARISON: 03/19/2020 FINDINGS: DEXA BONE DENSITY AXIAL SKELETON Using L1-4, the bone mineral density of the spine is a 1.287 g/cm2, corresponding to T-score of 2.2. Previously measured 1.203 g/cm2, corresponding to T-score of 1.4. Using the right hip, the bone mineral density of the femoral neck is 0.759 g/cm2, corresponding to a T-score of -0.8. Previously measured 0.759 g/cm2, corresponding to T-score of -0.8. Using the left hip, the bone mineral density of the femoral neck is 0.738 g/cm2, corresponding to a T-score of -1.0. Previously measured 0.728 g/cm2, corresponding to T-score of -1.1. NOTE: T-score: Standard deviation compared with peak bone mass of young adult mean. *Following the recommendations of the International Society of Bone densitometry, classification of hip BMD is based on the lower of two T-scores; total hip or femoral neck. IMPRESSION: Normal bone mineral density of the lumbar spine and right hip with borderline osteopenia of the left hip. FRAX is not reported because: All cores for spine total, hip total, femoral neck at or above -1.0. Reviewed, Interpreted and Dictated by Hawk Beaver MD Transcribed by Cara Terrazas Authenticated and [facility]
== END ==
PROVIDERS: PCP Nurse Practitioner Family; Visit Provider Nurse Practitioner Family
DX: Z12.31 Encounter for screening mammogram for malignant neoplasm of breast (principal); Z78.0 Asymptomatic menopausal state
CPT/HCPCS: 77063; 77067; 77080

== ENCOUNTER → 2022-06-12 12:51 | Outpatient (CLI) | payer MEDICARE, SELFPAY ==
--- NOTE | 2022-06-12 13:00 | XR_ITS ---
FINAL REPORT CLINICAL HISTORY: CHEST WALL PAIN COMPARISON: 06/20/2017 FINDINGS: Two views of the chest were obtained. The heart size and pulmonary vascularity are within normal limits. The mediastinum is normal. No acute pulmonary abnormality is identified. There is no pneumothorax. The bony thorax is intact. IMPRESSION: No active cardiopulmonary disease. Reviewed, Interpreted and Dictated by Andrey Mac III, MD Transcribed by Cara Terrazas Authenticated and [facility]
--- NOTE | 2022-06-12 13:00 | XR_ITS ---
FINAL REPORT CLINICAL HISTORY: CHEST WALL PAIN FINDINGS: BILATERAL RIBS Three of the bilateral ribs show no fractures. There is no pneumothorax or pleural fluid collection. IMPRESSION: Negative bilateral rib series. No pneumothorax. Reviewed, Interpreted and Dictated by Andrey Mac III, MD Transcribed by Cara Terrazas Authenticated and [facility]
--- NOTE | 2022-06-12 13:00 | XR_ITS ---
FINAL REPORT CLINICAL HISTORY: CHEST WALL PAIN FINDINGS: STERNUM 2 views were obtained. There is a subacute appearing fracture of the upper sternum with callus formation. There is no soft tissue abnormality. IMPRESSION: Subacute appearing fracture of the upper sternum with callus formation. No acute abnormality identified. Reviewed, Interpreted and Dictated by Andrey Mac III, MD Transcribed by Cara Terrazas Authenticated and [facility]
== END ==
PROVIDERS: PCP Nurse Practitioner Family; Visit Provider Nurse Practitioner Family
DX: R07.89 Other chest pain (principal)
CPT/HCPCS: 71046; 71111; 71120

== ENCOUNTER 2023-04-09 08:24 | Outpatient (CLI) | payer MEDICARE, SELFPAY ==
--- NOTE | 2023-04-09 08:32 | MM_ITS ---
PROCEDURE INFORMATION: Exam: MG Bilateral Screening 3D Mammography Exam date and time: 04/09/2023 8:25 AM Age: 67 years old Clinical indication: Screening examination . Family history of breast carcinoma. TECHNIQUE: Imaging protocol: Bilateral Screening tomosynthesis and 2D mammography including computer-aided detection (CAD) when performed. COMPARISON: 1. MG MM DIG SCREENING MAMM BI W/CAD 04/07/2022 8:13 AM 2. MG MM DIG SCREENING MAMM BI W/CAD 03/25/2021 8:10 AM 3. MG MM DIG SCREENING MAMM BI W/CAD 02/19/2020 9:04 AM FINDINGS: MAMMOGRAPHY: Breast composition: There are scattered areas of fibroglandular density. Mass: No suspicious masses. Architectural distortion: No suspicious distortion. Calcifications: No suspicious calcifications. Asymmetric density: None. Skin thickening: None. Axillary adenopathy: None. IMPRESSION: 1. No mammographic evidence of malignancy. Annual screening is recommended unless otherwise clinically indicated. 2. Given the reported risk factors for this patient, a breast cancer risk assessment may prove useful for further evaluation. ASSESSMENT: BI-RADS Category 1: Negative
== END 2023-04-09 23:59 ==
LOC: RAD 08:24
PROVIDERS: PCP Nurse Practitioner Family; Visit Provider Nurse Practitioner Family
DX: Z12.31 Encounter for screening mammogram for malignant neoplasm of breast (principal)
CPT/HCPCS: 77063; 77067

== ENCOUNTER 2023-10-09 09:40 | Outpatient (POV) | payer MEDICARE, SELFPAY | END 2023-10-09 23:59 | disposition home or self-care (01) | LOC: SC 09:40 | PROVIDERS: PCP Nurse Practitioner Family; Visit Provider Dermatology | DX: Z00.00 Encounter for general adult medical examination without abnormal findings (principal) ==

== ENCOUNTER 2024-05-21 09:11 | Outpatient (CLI) | payer MEDICARE, SELFPAY ==
--- NOTE | 2024-05-21 09:15 | MM_ITS ---
PROCEDURE INFORMATION: Exam: MG Bilateral Screening 3D Mammography Exam date and time: 05/21/2024 9:28 AM Age: 68 years old Clinical indication: Screening examination. A maternal aunt had breast cancer. TECHNIQUE: Imaging protocol: Bilateral Screening tomosynthesis and 2D mammography including computer-aided detection (CAD) when performed. COMPARISON: 1. MG MM DIG SCREENING MAMM BI W/CAD 04/09/2023 8:25 AM 2. MG MM DIG SCREENING MAMM BI W/CAD 04/07/2022 8:13 AM 3. MG MM DIG SCREENING MAMM BI W/CAD 03/25/2021 8:10 AM 4. MG MM DIG SCREENING MAMM BI W/CAD 02/19/2020 9:04 AM FINDINGS: MAMMOGRAPHY: Breast composition: There are scattered areas of fibroglandular density. Mass: None. Architectural distortion: None. Calcifications: No suspicious calcifications. Asymmetric density: None. Skin thickening: None. Axillary adenopathy: None. IMPRESSION: No mammographic evidence of malignancy. Annual screening is recommended unless otherwise clinically indicated. ASSESSMENT: BI-RADS Category 1: Negative.
--- NOTE | 2024-05-21 09:15 | XR_ITS ---
FINAL REPORT TECHNIQUE: Bone densitometry calculations of the lumbar spine and left hip were obtained. CLINICAL HISTORY: screening COMPARISON: 04/07/2022 FINDINGS: Using L1-4, the bone mineral density of the spine is 1.233 g/cm2, corresponding to T-score of 1.7 and a Z score of 3.7. This is within the range of normal limits. Previously was 1.287 with a T-score of 2.2 and Z-score of 0.0. Using the right hip, the bone mineral density of the femoral neck is 0.722 g/cm2, corresponding to a T-score of -1.1 and a Z-score of 0.6. This is within the range of osteopenia. Previously was 0.759 with a T-score of -0.8 and Z-score of 0.8. FRAX 10 year fracture risk is 1.8% for a hip fracture and 17% for a major osteoporotic fracture. NOTE: T-score: Standard deviation compared with peak bone mass of young adult mean. *Following the recommendations of the International Society of Bone densitometry, classification of hip BMD is based on the lower of two T-scores; total hip or femoral neck. IMPRESSION: 1. Bone mineral density of the lumbar spine within the range of normal limits. 2. Bone mineral density of the right femoral neck within the range of osteopenia. Reviewed, Interpreted and Dictated by Princess Marshall MD Transcribed by Guadalupe Flores Authenticated and [facility]
== END 2024-05-21 23:59 | disposition home or self-care (01) ==
LOC: RAD 09:12
PROVIDERS: PCP Nurse Practitioner Family; Visit Provider Physician Assistant
DX: Z12.31 Encounter for screening mammogram for malignant neoplasm of breast (principal); M85.88 Other specified disorders of bone density and structure, other site; Z13.820 Encounter for screening for osteoporosis
CPT/HCPCS: 77063; 77067; 77080